=== PATIENT | female | born 2005 | race Caucasian/White ===

== ENCOUNTER → 2023-01-03 12:20 | Outpatient (CLI) | payer OTHER, SELFPAY ==
[2023-01-03 12:50] LABS: Pregnancy Test Urine Negative (Negative)
== END ==
PROVIDERS: PCP Student in an Organized Health Care Education/Training Program; Visit Provider Nurse Practitioner Family
DX: N89.8 Other specified noninflammatory disorders of vagina (principal)
CPT/HCPCS: 81025; 87210

== ENCOUNTER → 2025-06-26 14:10 | Outpatient (CLI) | payer OTHER, SELFPAY | PROVIDERS: PCP Student in an Organized Health Care Education/Training Program; Visit Provider Chiropractor | DX: Z11.3 Encounter for screening for infections with a predominantly sexual mode of transmission (principal) | CPT/HCPCS: 87210 ==

== ENCOUNTER → 2025-06-26 15:06 | Outpatient (CLI) | payer OTHER, SELFPAY ==
[2025-06-26 18:19] LABS: Urine Chlamydia NOT DETECTED; Urine N gonorrhoeae NOT DETECTED
[2025-06-27 03:20] LABS: HIV 1 & 2 Ab/Ag 4th Gen Combo NEGATIVE (NEGATIVE); Hep C Virus Ab w/Reflex Quant NEGATIVE s/c (NEGATIVE)
== END ==
LOC: LAB 15:07
PROVIDERS: PCP Student in an Organized Health Care Education/Training Program; Referring Provider Chiropractor; Visit Provider Chiropractor
DX: Z11.3 Encounter for screening for infections with a predominantly sexual mode of transmission (principal)
CPT/HCPCS: 36415; 86592; 86803; 87210; 87389; 87491; 87591